=== PATIENT | female | born 1960 | race Two or more races ===

== ENCOUNTER 2019-03-26 16:02 | Emergency (ER) | payer MEDICAID, OTHER ==
[~2019-03-26] VITALS: Ht 152.4 cm; Wt 72.6 kg
[2019-03-26 16:15] VITALS: BP 127/79
[2019-03-26 16:47] LABS: APPEARANCE,URINE CLEAR; BASOPHILS % (AUTO) 1.1 % (0.0-2.0); BILIRUBIN, URINE NEGATIVE (NEGATIVE); EOSINOPHILS % (AUTO) 1.9 % (0.0-3.0); GLUCOSE, URINE (UA) NEGATIVE (NEGATIVE); HEMATOCRIT 40.3 % (37.0-47.0); HEMOGLOBIN 12.7 G/DL (12.0-16.0); KETONES,URINE 1+ (NEGATIVE); LEUKOCYTE ESTERASE ,URINE 1+ (NEGATIVE); LYMPHOCYTES % (AUTO) 22.3 % (20.0-45.0); MEAN CORPUSCULAR VOLUME 86 FL (80-99); NEUTROPHILS % (AUTO) 66.7 % (45.0-75.0); NITRITE,URINE NEGATIVE (NEGATIVE); PH,URINE 6 (4.5-8.0); PLATELET COUNT 283 K/UL (150-450); PROTEIN,URINE 1+ (NEGATIVE); RED CELL DISTRIBUTION WIDTH 12.5 % (11.6-14.8); UROBILINOGEN,URINE 1 MG/DL (0.0-1.0); WHITE BLOOD COUNT 8.8 K/UL (4.8-10.8)
[2019-03-26 16:53] LABS: COLOR,URINE YELLOW
[2019-03-26 16:59] LABS: ANION GAP 6 mmol/L (5-15); BLOOD UREA NITROGEN 16 mg/dL (7-18); CALCIUM 9.2 MG/DL (8.5-10.1); CARBON DIOXIDE 30 MMOL/L (21-32); CHLORIDE 107 MMOL/L (98-107); CREATININE 0.9 MG/DL (0.55-1.30); POTASSIUM 4.4 MMOL/L (3.5-5.1); SODIUM 143 MMOL/L (136-145)
[2019-03-26 17:03] LABS: ALANINE AMINOTRANSFERASE 15 U/L (12-78); ALBUMIN 3.7 G/DL (3.4-5.0); ALBUMIN/GLOBULIN RATIO 0.8 (1.0-2.7); ALKALINE PHOSPHATASE 78 U/L (46-116); ASPARTATE AMINO TRANSFERASE 21 U/L (15-37); BILIRUBIN,TOTAL 0.3 MG/DL (0.2-1.0)
--- NOTE | 2019-03-26 17:10 | Emergency Room Report ---
History of Present Illness General Chief Complaint: Sore Throat Source: Patient Present Illness HPI 58-year-old female with no significant past medical history here complaining of 1 month of sore throat. Patient reports that her pain is worse at night. Denies any fever and chills cough and congestion. Reports that the pain is localized to the left side of her throat. Has care. Minimal swelling of the left tonsil noted with anterior cervical lymphadenopathy on the same side. Denies abdominal pain, nausea vomiting, chest pain shortness of breath. Denies any urinary symptoms. Patient is postmenopausal x10 years. Has not taken any medication for symptom relief. Is up-to-date with her immunization. Denies being sexually active. Denies fever and chills, headache, photophobia, neck stiffness Allergies: Coded Allergies: No Known Allergies (Unverified , 03/26/19) Patient History Past Medical History: see triage record Past Surgical History: unable to obtain Pertinent Family History: none Now: No Immunizations: UTD Reviewed Nursing Documentation: PMH: Agreed; PSxH: Agreed Nursing Documentation-PMH Past Medical History: No Stated History Review of Systems All Other Systems: negative except mentioned in HPI Physical Exam Vital Signs Date Time Temp Pulse Resp B/P (MAP) Pulse Ox O2 Delivery O2 Flow Rate FiO2 03/26/19 16:11 98.2 85 20 127/79 (95) 98 Room Air Sp02 EP Interpretation: reviewed, normal General Appearance: no apparent distress, alert, GCS 15, non-toxic Head: normocephalic, atraumatic Eyes: bilateral eye normal inspection, bilateral eye PERRL ENT: hearing grossly normal, TMs + canals normal, uvula midline, moist mucus membranes, tonsillar swelling Neck: full range of motion, supple, no meningismus, no carotid bruits Respiratory: chest non-tender, lungs clear, normal breath sounds, no rhonchi, no retraction, no wheezing, speaking full sentences Cardiovascular #1: regular rate, rhythm, no edema, no murmur Gastrointestinal: normal bowel sounds, non tender, soft, non-distended, no guarding, no rebound Rectal: deferred Genitourinary: normal inspection, no CVA tenderness Musculoskeletal: back normal, gait/station normal, normal range of motion, non- tender, no calf tenderness Neurologic: alert, oriented x3, responsive, motor strength/tone normal, sensory intact, speech normal Psychiatric: judgement/insight normal, memory normal, mood/affect normal, no suicidal/homicidal ideation Skin: no rash Lymphatic: adenopathy - left anterior cervical Medical Decision Making PA Attestation Diagnosis and treatment plans were reviewed and discussed with my supervising physician Dr. Melvin Diagnostic Impression: Primary Impression: Tonsillitis Additional Impressions: Lymphadenopathy of head and neck Hematuria ER Course 58-year-old female with no significant past medical history here complaining of 1 month of sore throat. Patient reports that her pain is worse at night. Denies any fever and chills cough and congestion. Reports that the pain is localized to the left side of her throat. Has care. Minimal swelling of the left tonsil noted with anterior cervical lymphadenopathy on the same side. Denies abdominal pain, nausea vomiting, chest pain shortness of breath. Denies any urinary symptoms. Patient is postmenopausal x10 years. Has not taken any medication for symptom relief. Is up-to-date with her immunization. Denies being sexually active. Denies fever and chills, headache, photophobia, neck stiffness Ddx considered but are not limited to: strep pharyngitis, URI, tonsillitis, peritonsillar abscess, influenza Vital signs: are WNL, pt. is afebrile H&PE are most consistent with: Tonsillitis, lymphadenopathy anterior cervical, incidental finding of hematuria ORDERS: CBC, CMP, UA, throat culture, motrin ED INTERVENTIONS: None required at this time. DISCHARGE: At this time pt. is stable for d/c to home. Will provide printed patient care instructions, and any necessary prescriptions. Care plan and follow up instructions have been discussed with the patient prior to discharge. Follow-up with your primary care provider for further testing and also have your primary repeat your urine due to blood finding and there are possible referral to [facility] or urologist. Peripheral smear may be needed depending on the results as well as next CT scan. Last Vital Signs Date Time Temp Pulse Resp B/P (MAP) Pulse Ox O2 Delivery O2 Flow Rate FiO2 03/26/19 16:15 98.2 20 127/79 98 Room Air 03/26/19 16:11 85 Disposition: HOME, SELF-CARE Condition: Stable Scripts Ibuprofen* (MOTRIN*) 600 Mg Tablet 600 MG ORAL Q8H PRN for For Pain, #20 TAB 0 Refills Prov: Sahelimoghavami,Nahal PA 03/26/19 Referrals: NON PHYSICIAN (PCP) Patient Instructions: Hematuria, Adult, Lymphadenopathy, Tonsillitis Additional Instructions: Follow-up with your primary care provider pending throat culture results if any antibiotic needed will be called in. Have your primary care provider to repeat your urine due to blood in your urine noted possible referral to [facility] or urologist. Que Kaur Mar 26, 2019 17:10
[2019-03-26] MEDS ORDERED: IBUPROFEN600 MG ORAL (17:11)
[2019-03-26 17:24] VITALS: BP 127/79
== END 2019-03-26 17:25 | disposition home or self-care (01) ==
LOC: EMR 16:24
DX: J03.90 Acute tonsillitis, unspecified (principal); R59.0 Localized enlarged lymph nodes; R31.9 Hematuria, unspecified
CPT/HCPCS: 36415; 80053; 81001; 85025; 87070; Z7502; 99283